=== PATIENT | male | born 2000 | race Caucasian/White ===

== ENCOUNTER 2024-11-24 14:32 | Emergency (ER) | payer SELFPAY ==
[~2024-11-24] VITALS: Ht 167.6 cm; Wt 88.0 kg
[2024-11-24 14:34] VITALS: TEMP 36.5; O2SAT 98
[2024-11-24] MEDS: SODIUM CHLORIDE 0.9% 1,000 ML IV ONE (15:23)
[2024-11-24] MEDS: MAGNESIUM/ALUMINUM HYDROXIDE/SIMETHICONE 30ML UDC PO STA (15:23)
[2024-11-24] MEDS: ONDANSETRON HCL 4MG/2ML INJ IV STA (15:24)
[2024-11-24] MEDS: PANTOPRAZOLE SODIUM 40 MG/VIAL IV STA (15:24)
[2024-11-24 15:33] LABS: BASOPHILS % 0.3 % (0.0-2.0); EOSINOPHILS % 0.7 % (0.0-5.0); HEMOGLOBIN. 15.3 g/dL (14.0-18.0); LYMPHOCYTES % 20.3 % (20.0-50.0); MEAN CORPUSCULAR HGB CONC 33.2 g/dL (31.0-37.0); MEAN CORPUSCULAR VOLUME 84.4 fL (80.0-94.0); MEAN PLATELET VOLUME 9.3 fl (7.4-10.4); MONOCYTES % 6.9 % (2.0-8.0); NEUTROPHILS % 71.8 % (40.0-76.0); PLATELET 258 x1000/uL (130-400); RED BLOOD CELL COUNT 5.45 mill/uL (4.7-6.1); RED CELL DISTRIBUTION WIDTH 13.4 % (11.6-14.6); WHITE BLOOD COUNT 11.7 x1000/uL (4.5-11.0)
[2024-11-24 15:37] LABS: CHLORIDE 104 mEq/L (98-107); POTASSIUM 3.5 mEq/L (3.5-5.1); SODIUM 142 mEq/L (136-145)
[2024-11-24 15:38] LABS: CARBON DIOXIDE 28 mEq/L (21-32)
[2024-11-24 15:39] LABS: CALCIUM 10.5 mg/dL (8.7-10.4)
[2024-11-24 15:44] LABS: GLUCOSE 94 mg/dL (70-105); UREA NITROGEN BLOOD 12 mg/dL (9-23)
[2024-11-24 15:45] LABS: ALANINE AMINOTRANSFERASE 8 IU/L (10-49); ASPARTATE AMINOTRANSFERASE 12 IU/L (<34)
[2024-11-24 15:46] LABS: BILIRUBIN DIRECT 0.2 mg/dL (<=3.0); BILIRUBIN TOTAL 0.6 mg/dL (0.1-1.0); PROTEIN TOTAL 8.1 g/dL (6.0-8.3)
[2024-11-24 15:48] LABS: ETHANOL BLOOD < 10 mg/dL (<10); TROPONIN I HIGH SENSITIVITY < 4 ng/L (3.0-53)
[2024-11-24 16:01] LABS: PROTHROMBIN TIME 10.5 sec (9.6-11.0)
[2024-11-24] MEDS ORDERED: MAG355OR21 MT (16:29)
[2024-11-24] MEDS ORDERED: ONDA4TAB50 MT (16:29)
[2024-11-24 16:58] VITALS: BP 122/86; PULSE 73; RESP 17; O2SAT 99
== END 2024-11-24 17:20 | disposition home or self-care (01) ==
LOC: ER 14:32
DX: R11.2 Nausea with vomiting, unspecified (principal); F10.90 Alcohol use, unspecified, uncomplicated; F12.90 Cannabis use, unspecified, uncomplicated; Y90.9 Presence of alcohol in blood, level not specified
CPT/HCPCS: 80076; 80048; 80320; 83690; 85025; 85610; 84484; 36415; 71045; 93005; 96361; 96374; 96375; 99285; J2405; J2470; G0480